=== PATIENT | female | born 1985 | race African-American/Black ===

== ENCOUNTER 2019-09-04 16:45 | Emergency (ER) | payer OTHER, SELFPAY ==
--- NOTE | 2019-09-04 17:02 | ED.GENADULT ---
HPI - General Adult General Chief complaint: Upper Respiratory Infection Stated complaint: HEADACHE/SINUS PROB/COUSINS POS CORONO Time Seen by Provider: 09/04/19 16:57 Source: patient Mode of arrival: ambulatory Limitations: no limitations History of Present Illness HPI narrative: The patient is a 34-year-old female who presents for evaluation of cold symptoms. Patient states that she has had a mild headache, and intermittent aching in her test over the past several days, denies any current chest pain or shortness of breath. She states that a cousin's boyfriend was recently diagnosed with pelvic pneumonia and is currently hospitalized. Her cousin is asymptomatic. The patient denies any fever, chills, shortness of breath, cough. Patient states her son has had a cough. Patient has had no diarrhea. No abdominal pain. No numbness or tingling. Related Data Home Medications Medication Instructions Recorded Confirmed No Home Medications 09/04/19 09/04/19 Allergies Allergy/AdvReac Type Severity Reaction Status Date / Time ibuprofen Allergy Unknown Ulcers Verified 09/04/19 17:19 naproxen Allergy Unknown Ulcers Verified 09/04/19 17:19 tramadol Allergy Unknown Ulcers Verified 09/04/19 17:19 Review of Systems Review of Systems: Narrative: CONSTITUTIONAL: Denies fever, chills, or sweats. EYES: Denies visual changes, redness, or discharge. ENT: Denies rhinorrhea, congestion, sore throat, or otalgia. CARDIOVASCULAR: Denies chest pain, palpitations, or edema. RESPIRATORY: Denies cough or dyspnea. GASTROINTESTINAL: Denies abdominal pain, nausea, vomiting, or diarrhea. GENITOURINARY: Denies dysuria SKIN: Denies rash or itching. MUSCULOSKELETAL: Denies back pain, joint pain, or myalgia. NEUROLOGIC: Reports mild headache, denies numbness or weakness PMF Social History Social History (Updated 09/04/19 @ 17:30 by Josefa Borden MD) Smoking status: Never smoker Alcohol intake: never Substance use: never Living arrangements: with family Gender identity (if verbalized by the patient): Female Exam Narrative: Exam Narrative: GENERAL: Awake, alert, conversant HEAD: Normocephalic, atraumatic. EYES: PERRLA and EOMI. ENT: Nares clear, no rhinorrhea or epistaxis. Mucous membranes moist. NECK: Supple. CHEST: Lungs clear to auscultation bilaterally without wheezing, no respiratory distress, breathing even and non labored HEART: Regular rate, sinus rhythm ABDOMEN:Non distended, non tender EXTREMITIES: Normal range of motion. No edema. SKIN: Warm, dry, no rash. NEURO:No focal deficits. Alert and oriented x3. Ambulatory with a narrow base, steady gait. Course Course Emergency Course: Patient presented for evaluation of possible coronavirus exposure. Patient has been asymptomatic and had her exposure over 7 days ago. Patient is hemodynamically stable without any neurological deficits, no complaints of any pain at this point. Patient denies any current chest pain, shortness of breath, cough, fever, diarrhea, abdominal pain. No weakness. Patient is well-appearing. At this point, patient does not meet testing requirements for the [facility]. I explained that she may speak with her primary care provider if she wanted to obtain a private test. Patient was then discharged home in stable condition. Vital Signs Vital signs: Vital Signs Temperature 37.2 C 09/04/19 17:16 Pulse Rate 58 L 09/04/19 17:16 Respiratory Rate 18 09/04/19 17:16 Blood Pressure 113/67 09/04/19 17:16 Pulse Oximetry 100 09/04/19 17:16 Temperature 37.2 C 09/04/19 17:16 Pulse Rate 58 L 09/04/19 17:16 Respiratory Rate 18 09/04/19 17:16 Blood Pressure 113/67 09/04/19 17:16 Pulse Oximetry 100 09/04/19 17:16 Medical Decision Making Vital Signs Vital Signs: Vital Signs Temperature 37.2 C 09/04/19 17:16 Pulse Rate 58 L 09/04/19 17:16 Respiratory Rate 18 09/04/19 17:16 Blood Pressure 113/67 09/04/19 17:1
[2019-09-04 17:16] VITALS: BP 113/67; PULSE 58; RESP 18; TEMP 37.2; O2SAT 100
== END 2019-09-04 18:30 | disposition home or self-care (01) ==
PROVIDERS: Emergency Provider Emergency Medicine
DX: J06.9 Acute upper respiratory infection, unspecified (principal)
CPT/HCPCS: 99281

== ENCOUNTER 2020-08-23 14:28 | Emergency (ER) | payer OTHER, SELFPAY ==
[2020-08-23 14:39] VITALS: BP 112/59; PULSE 61; RESP 16; TEMP 36.2; O2SAT 100
--- NOTE | 2020-08-23 15:31 | ED.URI ---
HPI - URI/Sore Throat General Chief Complaint: Upper Respiratory Infection Stated Complaint: body aches Time Seen by Provider: 08/23/20 14:48 Source: patient Mode of arrival: ambulatory Limitations: no limitations History of Present Illness HPI Narrative: Patient is a 35-year-old female who presents complaining of headache, generalized body aches and malaise x2 days. She has her 2 children with her who are also ill and being seen by [facility] in the ED. She denies fever, cough, she congestion or shortness of breath. She denies known exposure to Covid at this time. She reports headache is 6/10. She reports she is unable to take NSAIDs. She reports taking 2 Tylenol early this a.m. She denies all other complaints at this time. MD elicited complaint: other (Headache, generalized body aches and malaise) Related Data Home Medications Medication Instructions Recorded Confirmed No Home Medications 09/04/19 09/04/19 Allergies Allergy/AdvReac Type Severity Reaction Status Date / Time ibuprofen Allergy Unknown Ulcers Verified 09/04/19 17:19 naproxen Allergy Unknown Ulcers Verified 09/04/19 17:19 tramadol Allergy Unknown Ulcers Verified 09/04/19 17:19 Review of Systems Review of Systems: Narrative: CONSTITUTIONAL: Denies fever, chills, or sweats. Reports generalized body aches and malaise EYES: Denies visual changes, redness, or discharge. ENT: Denies rhinorrhea, congestion, sore throat, or otalgia. CARDIOVASCULAR: Denies chest pain, palpitations, or edema. RESPIRATORY: Denies cough or dyspnea. GASTROINTESTINAL: Denies abdominal pain, nausea, vomiting, or diarrhea. GENITOURINARY: Denies dysuria or hematuria. SKIN: Denies rash or itching. MUSCULOSKELETAL: Denies back pain, joint pain, or myalgia. NEUROLOGIC: Reports headache PSYCHIATRIC: Denies anxiety or depression. [facility] Past Medical History Medical History (Updated 08/23/20 @ 17:45 by MARISOL Wiley) No significant past medical history Surgical History Surgical History (Updated 08/23/20 @ 15:33 by MARISOL Wiley) H/O: Family History Family History (Updated 08/23/20 @ 15:34 by MARISOL Wiley) Other No significant family history Social History Social History (Updated 08/23/20 @ 15:34 by MARISOL Wiley) Smoking status: Never smoker Alcohol intake: never Substance use: never Living arrangements: with family Gender identity (if verbalized by the patient): Female Exam Narrative: Exam Narrative: GENERAL: Well-appearing, well-nourished, and in no acute distress. HEAD: Normocephalic, atraumatic. EYES: No redness or drainage. Conjunctiva are normal. ENT: Mucous membranes pink and moist. CHEST: No respiratory distress. HEART: Regular rate and rhythm. No murmur appreciated. Normal peripheral pulses. MUSCULOSKELETAL: No bony tenderness. EXTREMITIES: Normal range of motion. No edema. SKIN: Warm, dry, no rash. NEURO: No focal deficits. Alert and oriented x3. Gait steady. PSYCH: Normal affect. No signs of depression or anxiety. Course Reevaluation(s) Reevaluation #1: Patient reports that she still has persistent headache after IV Tylenol. Patient reports pain 4/10. Patient unable to take NSAIDs at this time. Discussed with patient that I am unable to give medication such as morphine because she has 2 children who are also being seen as well as that she is driving. Vital Signs Vital signs: Vital Signs Temperature 36.2 C L 08/23/20 14:39 Pulse Rate 61 08/23/20 14:39 Respiratory Rate 16 08/23/20 14:39 Blood Pressure 112/59 L 08/23/20 14:39 Pulse Oximetry 100 08/23/20 14:39 Temperature 36.2 C L 08/23/20 14:39 Pulse Rate 61 08/23/20 14:39 Respiratory Rate 16 08/23/20 14:39 Blood Pressure 112/59 L 08/23/20 14:39 Pulse Oximetry 100 08/23/20 14:39 Reviewed MDM - URI/Sore Throat MDM Narrative Medical decision making narrative: Patient most likely has viral illness.
[2020-08-23 15:57] LABS: Basophils Percent Auto 0.7 % (0.2-1.2); Eosinophils Absolute Auto 0.1 K/mm3 (0-0.3); Eosinophils Percent Auto 1.6 % (0-4.4); Hematocrit 28.9 % (37.0-47.0); Hemoglobin 8.4 g/dL (12.0-15.0); Immature Granulocyte Absolute 0.01 K/mm3 (0.00-0.031); Immature Granulocyte Percent A 0.2 % (0-0.5); Immature Platelet Fraction Pct 6.4 % (0.9-11.2); Lymphocytes Absolute Auto 1.49 K/mm3 (0.9-3.2); Lymphocytes Percent Auto 33.8 % (18.3-44.2); Mean Corpuscular HGB Conc 29.1 g/dl (32-36); Mean Corpuscular Hemoglobin 17.2 pg (26-34); Mean Corpuscular Volume 59.2 fl (80-100); Monocytes Absolute Auto 0.4 K/mm3 (0.1-0.6); Monocytes Percent Auto 9.5 % (2.6-8.5); Neutrophils Absolute Auto 2.4 K/mm3 (1.3-6.7); Neutrophils Percent Auto 54.2 % (45.5-73.1); Platelet Count Result 345 k/mm3 (150-375); Red Blood Count 4.88 M/mm3 (4.2-5.4); Red Cell Distribution Width 21.8 % (11.5-14.5); White Blood Count 4.4 K/mm3 (4.5-10.0)
[2020-08-23] MEDS: SODIUM CHLORIDE 0.9% IV 1,000 ML 999 ML IV CONT (16:07)
[2020-08-23 16:08] LABS: Platelet Estimate Adequate (Adequate)
[2020-08-23 16:09] LABS: Hypochromasia 1+ (NORMAL); Ovalocytes 1+ (NORMAL); Target Cells 2+ (NORMAL)
[2020-08-23 16:13] LABS: Alanine Aminotransferase 14 U/L (4-35); Alkaline Phosphatase 70 U/L (38-126); Anion Gap 3 mmol/L (8-16); Aspartate Amino Transferase 28 U/L (14-36); Bilirubin,Total 0.2 mg/dL (0.2-1.3); Blood Urea Nitrogen 7 mg/dL (7-17); Calcium 8.8 mg/dL (8.4-10.2); Carbon Dioxide 31 mmol/L (22-30); Chloride 108 mmol/L (98-107); Estimated CRCL calculation 84 ml/min; Estimated Glomerular Filt Rate > 60; Glucose 91 mg/dL (65-105); Potassium 3.9 mmol/L (3.4-5.0); Sodium 142 mmol/L (137-145)
[2020-08-23 16:13] LABS: Add Urine Microscopic? YES; Appearance Urine Clear (Clear); Bacteria Urine Trace /hpf; Bilirubin Urine Negative (Negative); Blood Urine Negative (Negative); Color Urine Yellow (Yellow); Glucose Urine UA Negative (Negative); Ketones Urine Negative (Negative); Leukocyte Esterase Ur Trace LEU/UL (Negative); Mucus Urine Rare /lpf; Nitrate Urine Negative (Negative); Protein Urine Negative (Negative); RBC Urine 0-2 /hpf (0-2); Specific Grav Ur 1.017 (1.001-1.035); Squamous Epithelial Cell Urine Moderate /hpf (Few); Urobilinogen Urine Negative mg/dL (<2.0); WBC Urine 0-3 /hpf
[2020-08-24 19:28] LABS: SARS-CoV-2 RNA PCR Negative
== END 2020-08-23 18:13 | disposition home or self-care (01) ==
PROVIDERS: Emergency Provider Nurse Practitioner; PCP Internal Medicine
DX: B34.9 Viral infection, unspecified (principal); Z20.822 Contact with and (suspected) exposure to COVID-19
CPT/HCPCS: 36415; 80053; 81001; 81025; 85025; 85055; 96361; 96374; 99284; C9803; J0131; J7030; U0003; U0005

== ENCOUNTER 2021-04-29 10:50 | Emergency (ER) | payer OTHER, SELFPAY ==
[2021-04-29 11:34] VITALS: BP 109/60; PULSE 61; RESP 16; TEMP 37.7; O2SAT 100
--- NOTE | 2021-04-29 11:51 | ED.DENTAL ---
HPI - Dental/Oral General Chief complaint: Dental/Oral Stated complaint: Tooth Pain,Abdominal Pain Time Seen by Provider: 04/29/21 11:51 Source: patient and RN notes reviewed Mode of arrival: ambulatory Limitations: no limitations History of Present Illness HPI Narrative: 35-year-old female presents to the [facility] with complaints of right upper dental pain. Had seen a dentist 2 to 3 weeks ago was told she needed a root canal, scheduled for June. Requesting something stronger for pain. Patient is also complaining of lower abdominal pain, has a history of endometriosis. Concern for also concern for UTI. Related Data Allergies Allergy/AdvReac Type Severity Reaction Status Date / Time ibuprofen Allergy Unknown Ulcers Verified 04/29/21 10:52 naproxen Allergy Unknown Ulcers Verified 04/29/21 10:52 tramadol Allergy Unknown Ulcers Verified 04/29/21 10:52 Review of Systems Review of Systems: All systems reviewed & are unremarkable except as noted in HPI and below Constitutional: Constitutional: Reports no additional constitutional complaints, Denies chills and Denies fever(s) Eyes: Eyes: Reports no additional eye complaints ENT: Reports as per HPI (Right posterior dental pain) Cardiovascular: Cardiovascular: Reports no additional cardiovascular complaints and Denies chest pain Respiratory: Respiratory: Reports no additional respiratory complaints, Denies cough, Denies dyspnea and Denies wheezing Gastrointestinal: Gastrointestinal: Reports abdominal pain (Chronic, endometriosis) Genitourinary: Genitourinary: Reports no additional female genitourinary complaints Musculoskeletal: Musculoskeletal: Reports no additional musculoskeletal complaints Integumentary/Breasts: Skin/Breast: Reports system reviewed and no additional complaints, except as docu Neurologic: Reports system reviewed and no additional complaints, except as documented Psychiatric: Psychiatric: Reports no additional psychiatric complaints Allergic/Immunologic: Allergic/Immunologic: Reports no additional allergic/immunologic complaints [facility] Past Medical History Medical History No significant past medical history Surgical History Surgical History H/O: Family History Family History Other No significant family history Social History Social History Smoking status: Never smoker Alcohol intake: never Substance use: never Gender identity (if verbalized by the patient): Female Comments At the time of my signature, I reviewed and agree with the nursing past medical, surgical, social, and family history. There is no relevant family history pertinent to the patient complaint. Exam Const: General: healthy appearing, no acute distress and alert Nutritional Appearance: well nourished Orientation/consciousness: patient oriented x3 Limitations: no limitations HENMT: Head: normal to inspection Mouth: Yes Normal oral and palatal mucosa present and Yes lip normal Teeth and gingiva: poor dentition Teeth image: 1. Decayed teeth, lateral aspect of teeth 1 and 2 chipped away. Poor dentition throughout Throat: posterior oropharynx normal Eyes: Conjunctivae: conjunctivae normal Pupils: Equal, round and reactive pupils present Neck: Neck: normal visual inspection, no lymphadenopathy and no meningeal signs Chest: Chest palpation & inspection: normal inspection of the chest Resp: Effort & Inspection: normal respiratory effort Auscultation: clear to auscultation bilaterally Cardio: Rate: regular rate Rhythm: regular rhythm : General: Yes no CVA tenderness Back/Spine/Pelvis: Back: no CVA tenderness Skin: General skin exam: normal color Rashes: no rashes Wounds: no wounds Neuro: General: patient oriented x3, moves all
== END 2021-04-29 12:20 | disposition home or self-care (01) ==
PROVIDERS: Emergency Provider Nurse Practitioner; PCP Internal Medicine
DX: K08.89 Other specified disorders of teeth and supporting structures (principal); J45.909 Unspecified asthma, uncomplicated
CPT/HCPCS: 81003; 81025; 87077; 87086; 87088; 87186; 99213; G0463

== ENCOUNTER 2021-09-12 12:25 | Emergency (ER) | payer OTHER, SELFPAY ==
[2021-09-12 12:46] VITALS: BP 116/64; PULSE 54; RESP 16; TEMP 36.7
[2021-09-12 13:30] LABS: Add Urine Microscopic? NO; Appearance Urine Clear (Clear); Bilirubin Urine Negative (Negative); Blood Urine Negative (Negative); Color Urine Yellow (Yellow); Glucose Urine UA Negative (Negative); Ketones Urine Negative (Negative); Leukocyte Esterase Ur Negative LEU/UL (Negative); Nitrate Urine Negative (Negative); Protein Urine Negative (Negative); Specific Grav Ur 1.015 (1.001-1.035); Urobilinogen Urine Negative mg/dL (<2.0)
--- NOTE | 2021-09-12 14:22 | ED.GENADULT ---
HPI - General Adult General Chief complaint: Urogenital-Female Stated complaint: back pain/cloudy urine Time Seen by Provider: 09/12/21 13:01 History of Present Illness HPI narrative: Patient is a 36-year-old female who presents the ER with multiple issues. Patient is concerned she may have a UTI as she has been having cloudy foul-smelling urine for the last 1 to 2 weeks. Patient is also noticed some left flank pain. She is taking Tylenol without improvement. No fevers or chills or sweats. No urinary frequency urgency or dysuria. Denies abnormal vaginal discharge or vaginal bleeding. Patient also reports toothache that is been ongoing for 2 days. Tooth #3. No swelling at this time but did have facial swelling initially. Related Data Allergies Allergy/AdvReac Type Severity Reaction Status Date / Time ibuprofen Allergy Unknown Ulcers Verified 04/29/21 10:52 naproxen Allergy Unknown Ulcers Verified 04/29/21 10:52 tramadol Allergy Unknown Ulcers Verified 04/29/21 10:52 Review of Systems Review of Systems: All systems reviewed & are unremarkable except as noted in HPI and below Constitutional: Constitutional: Denies chills, Denies fever(s) and Denies weakness ENT: Denies nasal congestion and Denies sore throat Comments: Dental pain Gastrointestinal: Gastrointestinal: Denies abdominal pain, Denies nausea and Denies vomiting Genitourinary: Genitourinary: Denies abnormal vaginal bleeding, Denies dysuria and Denies vaginal discharge Comments: Foul-smelling urine PMFSH Past Medical History Medical History No significant past medical history Surgical History Surgical History H/O: Family History Family History Other No significant family history Social History Social History Smoking status: Never smoker Alcohol intake: never Substance use: never Gender identity (if verbalized by the patient): Female Exam Narrative: GENERAL: Well-appearing, well-nourished, and in no acute distress. HEAD: Normocephalic, atraumatic. ENT: Mucous membranes moist. Normal-appearing dentition without abscess of tooth #3 but patient reports this is an area of sensitivity. Normal appearing posterior oropharynx. CHEST: Clear to auscultation. No respiratory distress. HEART: Regular rate and rhythm. Normal peripheral pulses. ABDOMEN: Soft, nontender, nondistended. Mild left CVA tenderness Pelvic: Normal external genitalia. Speculum exam with mild/moderate amount of malodorous vaginal discharge. No pooling. No vaginal bleeding. Cervix normal appearance nonfriable. No CMT. EXTREMITIES: Normal range of motion. No edema. NEURO: Alert and oriented x3. PSYCH: Normal mood and affect. Course Course Emergency Course: Incidentally it was discovered that patient was on her urine testing. She was informed of this result. Suspect patient may have bacterial vaginosis and has been started on metronidazole. Recommend follow-up with her OB. Patient also started on amoxicillin for dental pain. Vital Signs Vital signs: Vital Signs Temperature 98.1 F 09/12/21 12:46 Pulse Rate 54 L 09/12/21 12:46 Respiratory Rate 16 09/12/21 12:46 Blood Pressure 116/64 09/12/21 12:46 Temperature 98.1 F 09/12/21 12:46 Pulse Rate 80 09/12/21 15:30 Respiratory Rate 14 09/12/21 15:30 Blood Pressure 116/64 09/12/21 12:46 Medical Decision Making Vital Signs Vital Signs: Vital Signs Temperature 98.1 F 09/12/21 12:46 Pulse Rate 54 L 09/12/21 12:46 Respiratory Rate 16 09/12/21 12:46 Blood Pressure 116/64 09/12/21 12:46 Temperature 98.1 F 09/12/21 12:46 Pulse Rate 80 09/12/21 15:30 Respiratory Rate 14 09/12/21 15:30 Blood Pressure 116/64 09/12/21 12:46 Lab Data Labs: Lab R
[2021-09-12 15:30] VITALS: PULSE 80; RESP 14
== END 2021-09-12 15:54 | disposition home or self-care (01) ==
PROVIDERS: Emergency Provider Emergency Medicine; PCP Internal Medicine
DX: O23.591 Infection of other part of genital tract in pregnancy, first trimester (principal); O99.611 Diseases of the digestive system complicating pregnancy, first trimester; K08.89 Other specified disorders of teeth and supporting structures; Z3A.00 Weeks of gestation of pregnancy not specified
CPT/HCPCS: 81003; 81025; 87070; 87077; 87491; 87591; 87808; 99284

== ENCOUNTER 2022-06-30 14:51 | Emergency (ER) | payer OTHER, MEDICAID, SELFPAY ==
[2022-06-30 14:58] VITALS: BP 115/49; PULSE 60; RESP 16; TEMP 36.2; O2SAT 95
--- NOTE | 2022-06-30 15:28 | ED.DENTAL ---
HPI - Dental/Oral General Chief complaint: Dental/Oral Stated complaint: dental pain Time Seen by Provider: 06/30/22 15:19 History of Present Illness HPI Narrative: This is a 37-year-old female with past medical history of GERD, who presents to the emergency department complaining of right mandibular tooth fracture and pain. She states her symptoms began 1 week ago and have worsened in the past day. Pain is described as sharp, rated 7 of 10, without radiation. She denies fevers but complains of some swelling at the right jaw Related Data Allergies Allergy/AdvReac Type Severity Reaction Status Date / Time ibuprofen Allergy Unknown Ulcers Verified 06/30/22 15:19 naproxen Allergy Unknown Ulcers Verified 06/30/22 15:19 tramadol Allergy Unknown Ulcers Verified 06/30/22 15:19 Review of Systems Review of Systems: CONSTITUTIONAL: Denies fever, chills, or sweats. EYES: Denies visual changes, redness, or discharge. ENT: Right side jaw pain denies rhinorrhea, congestion, sore throat, or otalgia. CARDIOVASCULAR: Denies chest pain, palpitations, or edema. RESPIRATORY: Denies cough or dyspnea. GASTROINTESTINAL: Denies abdominal pain, nausea, vomiting, or diarrhea. GENITOURINARY: Denies dysuria or hematuria. SKIN: Denies rash or itching. MUSCULOSKELETAL: Denies back pain, joint pain, or myalgia. NEUROLOGIC: Denies headache, numbness, dizziness, or weakness. PSYCHIATRIC: Denies anxiety or depression. PMFSH Past Medical History Medical History No significant past medical history Surgical History Surgical History H/O: Family History Family History Other No significant family history Social History Social History Smoking status: Never smoker Alcohol intake: never Substance use: never Living arrangements: with family Gender identity (if verbalized by the patient): Female Exam Narrative: GENERAL: Well-appearing, well-nourished, appears uncomfortable HEAD: Normocephalic, atraumatic. EYES: PERRLA and EOMI. ENT: Tooth fracture at tooth #32 without exposed dentin, erythema and mild swelling noted at the base of the tooth. Small amount of swelling noted to the right mandible, with tender submental lymphadenopathy on the right nares clear, no rhinorrhea or epistaxis. Mucous membranes moist. Oropharynx without tonsillar hypertrophy exudate or other lesions. NECK: Supple. No adenopathy or masses. No carotid bruits or JVD CHEST: Clear to auscultation. No respiratory distress. No wheezes rales or rhonchi HEART: Regular rate and rhythm. No murmur heard. Normal peripheral pulses. ABDOMEN: Soft, nontender, nondistended, normal active bowel sounds. EXTREMITIES: Normal range of motion. No edema. SKIN: Warm, dry, no rash. NEURO: No focal deficits. Alert and oriented x3. Course Course Emergency Course: 15:40 - Exam concerning for dental abscess. Unfortunately we do not have calcium hydroxide available to place a temporary cap. Will treat with pain medications and antibiotics. The patient states she frequently gets vaginal yeast infections after antibiotics and requests antifungals. Discussed return emergency precautions including signs/symptoms of deep space infection and airway compromise. The patient voiced understanding and is comfortable with plan. All questions answered to her satisfaction. Vital Signs Vital signs: Vital Signs Temperature 97.1 F L 06/30/22 14:58 Pulse Rate 60 06/30/22 14:58 Respiratory Rate 16 06/30/22 14:58 Blood Pressure 115/49 L 06/30/22 14:58 Pulse Oximetry 95 06/30/22 14:58 Oxygen Delivery Room Air 06/30/22 14:58 Temperature 97.1 F L 06/30/22 14:58 Pulse Rate 60 06/30/22 14:58 Respiratory Rate 16 06/30/22 14:58 Blood Pressure 115/49
[2022-06-30] MEDS: oxyCODONE/ACETAMINOPHEN (*CRX) 5-325 MG TABLET 1 TABLET PO (16:34)
[2022-06-30 16:49] VITALS: TEMP 36.2
== END 2022-06-30 16:53 | disposition home or self-care (01) ==
LOC: ANHED 16:01
PROVIDERS: Emergency Provider Preventive Medicine Aerospace Medicine; PCP Internal Medicine
DX: K04.7 Periapical abscess without sinus (principal); K03.81 Cracked tooth
CPT/HCPCS: 99283; A9270

== ENCOUNTER 2022-07-18 11:47 | Emergency (ER) | payer OTHER, MEDICAID, SELFPAY ==
[2022-07-18 12:17] VITALS: BP 123/70; PULSE 64; RESP 18; TEMP 36.6; O2SAT 100
--- NOTE | 2022-07-18 13:06 | ED.DENTAL ---
HPI - Dental/Oral General Chief complaint: Dental/Oral Stated complaint: tooth ache Time Seen by Provider: 07/18/22 12:27 Source: patient Mode of arrival: ambulatory Limitations: no limitations History of Present Illness HPI Narrative: Patient is a 37 years old -[place] female presents with right lower wisdom tooth pain started 2 weeks ago, was seen in our emergency room on June 30, 2022 and had a prescription of amoxicillin, Flagyl and [place]. Patient is telling me that she is allergic to NSAIDs which causing throat to close up and the rash. Also she is allergic to tramadol. She requested [place]. Patient also complaining of right lower back pain, had a diagnosis of sciatica and planning to see specialist next. She denies bowel dysfunction, bladder dysfunction, altered sensation, focal weakness, or saddle numbness, also denying any fever, chills, nausea, vomiting, headache, trouble breathing or swallowing. Teeth map: 1. Tooth decay, no abscess Related Data Allergies Allergy/AdvReac Type Severity Reaction Status Date / Time ibuprofen Allergy Unknown Ulcers Verified 06/30/22 15:19 naproxen Allergy Unknown Ulcers Verified 06/30/22 15:19 tramadol Allergy Unknown Ulcers Verified 06/30/22 15:19 Review of Systems Review of Systems: All systems reviewed & are unremarkable except as noted in HPI and below PMFSH Past Medical History Medical History No significant past medical history Surgical History Surgical History H/O: Family History Family History Other No significant family history Social History Social History Smoking status: Never smoker Alcohol intake: never Substance use: never Living arrangements: with family Gender identity (if verbalized by the patient): Female Exam Narrative: General appearance: Well-developed, well-nourished Skin: Normal color Head: Normocephalic, nontraumatic Eyes: Clear conjunctiva ENT: Oropharynx normal, ears normal, nose normal right lower wisdom tooth is deformed, caries, no abscess formation at this time Neck: Supple, nontender Chest and respiratory: Airway patent, no respiratory distress, no accessory muscle use Heart: Regular rate/rhythm Abdomen: Soft, nontender, no organomegaly, quiet bowel sounds Vascular: Normal peripheral pulses, normal capillary refill. Musculoskeletal: Diffuse tenderness right lower back and buttock, no bruises, no rash, no swelling, positive right straight leg raising test Neurologic: Alert and oriented ?3, [employer] is normal as tested, no gross motor deficit Course Reevaluation(s) Reevaluation #1: Feeling better after receiving [place] and prednisone in the emergency room. Date: 07/18/22 Time: 13:20 Vital Signs Vital signs: Vital Signs Temperature 36.6 C 07/18/22 12:17 Pulse Rate 64 07/18/22 12:17 Respiratory Rate 18 07/18/22 12:17 Blood Pressure 123/70 07/18/22 12:17 Pulse Oximetry 100 07/18/22 12:17 Oxygen Delivery Room Air 07/18/22 12:17 Temperature 36.6 C 07/18/22 12:17 Pulse Rate 64 07/18/22 12:17 Respiratory Rate 18 07/18/22 12:17 Blood Pressure 123/70 07/18/22 12:17 Pulse Oximetry 100 07/18/22 12:17 Oxygen Delivery Room Air 07/18/22 12:17 MDM - Dental/Oral MDM Narrative Medical decision making narrative: Patient presents with recurrent dental pain, did not see a dentist since last visit. Patient stated me that she is allergic to NSAIDs and would like to have [place]. Also complain
[2022-07-18] MEDS: predniSONE 20 MG TABLET 60 MG PO (13:14)
[2022-07-18] MEDS: HYDROcodone/acetaminophen (*CRX) 5-325 MG TABLET 1 TAB PO (13:14)
[2022-07-18 13:33] VITALS: BP 121/67; PULSE 67; RESP 16; O2SAT 100
== END 2022-07-18 13:34 | disposition home or self-care (01) ==
PROVIDERS: Emergency Provider Emergency Medicine; PCP Internal Medicine
DX: K02.9 Dental caries, unspecified (principal); M54.41 Lumbago with sciatica, right side
CPT/HCPCS: 99283; A9270; J7512